=== PATIENT | female | born 1980 | race African-American/Black ===

== ENCOUNTER 2019-09-23 10:36 | Emergency (ER) | payer OTHER ==
[~2019-09-23] VITALS: Ht 170.2 cm; Wt 66.0 kg
[2019-09-23 10:46] VITALS: BP 116/72
[2019-09-23] MEDS ORDERED: KETOROLAC 30MG/ML VIAL IM ONE (11:30)
== END 2019-09-23 11:34 | disposition home or self-care (01) ==
LOC: ER 10:36
DX: M54.5 Low back pain (principal); Z88.0 Allergy status to penicillin; J45.909 Unspecified asthma, uncomplicated; X50.0XXA Overexertion from strenuous movement or load, initial encounter; Y93.89 Activity, other specified; Y92.89 Other specified places as the place of occurrence of the external cause; Y99.8 Other external cause status
CPT/HCPCS: 96372; 99283; J1885

== ENCOUNTER 2019-09-24 21:08 | Emergency (ER) | payer OTHER ==
[~2019-09-24] VITALS: Ht 170.2 cm; Wt 64.0 kg
[2019-09-24] MEDS ORDERED: KETOROLAC 60MG/2ML VIAL IM ONE (22:30)
[2019-09-25 01:25] VITALS: BP 115/79
== END 2019-09-25 01:26 | disposition home or self-care (01) ==
LOC: ER 21:08
DX: S33.5XXA Sprain of ligaments of lumbar spine, initial encounter (principal); J45.909 Unspecified asthma, uncomplicated; Z88.0 Allergy status to penicillin; X58.XXXA Exposure to other specified factors, initial encounter; Y93.89 Activity, other specified; Y92.488 Other paved roadways as the place of occurrence of the external cause
CPT/HCPCS: 72100; 96372; 99283; J1885